=== PATIENT | female | born 1925 | race Caucasian/White ===

== ENCOUNTER 2016-08-29 13:46 | Emergency (ER) | payer MEDICARE ==
[~2016-08-29] VITALS: Ht 157.5 cm; Wt 80.0 kg
[~2016-08-29 13:46] MED LIST: GABA100C4 PO; ULTR50TA PO
[2016-08-29 13:58] VITALS: BP 123/75; PULSE 62; RESP 16; TEMP 99.3; O2SAT 96
[2016-08-29] MEDS ORDERED: GABA100C4 PO (14:15)
--- NOTE | 2016-08-29 14:38 | PD ---
HPI Chief Complaint: Back/ Neck Pain or Injury Time Seen by Provider: 14:35 Travel History International Travel<30 days: No Contact w/Intl Traveler<30days: No Traveled to known affect area: No History of Present Illness HPI 89-year-old female presents to the emergency department for evaluation of right upper back pain. Patient states she has a history of chronic back pain, but it has worsened over the last 3 days. She states it comes and goes. It is worse with movement. She states that it was better the last night with a heating pad. She denies a traumatic injury. She does report a history of chronic back pain and states that she also has a history of calcifications on her ribs. Patient denies any chest pain or shortness of breath. No abdominal pain. No vomiting. She is ambulatory. Patient states she has taken Tylenol for pain without relief. Patient also has a history of hypertension. She states she has had imaging done of the spine in the chest. PFSH Past Medical History Arthritis: Yes Blood Disorders: No Anxiety: No Depression: Yes Cancer: Yes (BREAST CA) Cardiovascular Problems: Yes Chemotherapy: No Diabetes: No Diminished Hearing: No Endocrine: No Gastrointestinal Disorders: Yes (HEARTBURN) GERD: Yes Genitourinary: Yes (bladder sling ) Hypertension: Yes Immune Disorder: No Medical other: Yes (CHRONIC BACK PAIN) Musculoskeletal: Yes (RIGHT LEG NEUROPATHY, RIGHT FOOT DROP) Neurologic: No Psychiatric: Yes Reproductive: No Respiratory: No Immunizations Current: Yes Radiation Therapy: Yes (LEFT BREAST CANCER WITH LUMPECTOMY) Tetanus Vaccination: < 5 Years Influenza Vaccination: Yes ?: Not Menopausal: Yes Past Surgical History Abdominal Surgery: Yes (APPENDECTOMY, CHOLECYSTECTOMY) Appendectomy: Yes Cholecystectomy: Yes Eye Surgery: Yes (CATARACTS) Genitourinary Surgery: Yes (BLADDER "UPLIFT") Gynecologic Surgery: Yes Hysterectomy: Yes Other Surgery: Yes (CARPAL TUNNEL, BUNIONS) Social History Alcohol Use: Yes (RARE) Tobacco Use: No Substance Use: No Allergies-Medications (Allergen,Severity, Reaction): Coded Allergies: Demerol (Verified Allergy, Severe, HALLUCINATIONS, 08/29/16) Latex (Verified Allergy, Severe, RASH, 08/29/16) PATIENT STATES THAT SHE ONLY GETS A RASH FROM LATEX BANDAGES AND HAS NO ISSUES WITH LATEX GLOVES, ETC. Reported Meds & Prescriptions Reported Meds & Active Scripts Active Reported Gabapentin 100 Mg Cap 2 Cap PO TID Review of Systems Except as stated in HPI: all other systems reviewed are Neg Physical Exam Narrative GENERAL: Well-developed well-nourished elderly female patient, afebrile. SKIN: Warm and dry. HEAD: Normocephalic. Atraumatic. EYES: No scleral icterus. No injection or drainage. NECK: Supple, trachea midline. No JVD or lymphadenopathy. CARDIOVASCULAR: Regular rate and rhythm without murmurs, gallops, or rubs. RESPIRATORY: Breath sounds equal bilaterally. No accessory muscle use. Lungs sounds are clear to auscultation. GASTROINTESTINAL: Abdomen soft, non-tender, nondistended. MUSCULOSKELETAL: No cyanosis, or edema. Bilateral upper and lower she was strength 5/5. BACK: Nontender without obvious deformity. No CVA tenderness. No midline spinal tenderness. She does have tenderness over the right posterior ribs. This is reproducible with palpation and movement. Data Data Last Documented VS Vital Signs Date Time Temp Pulse Resp B/P Pulse Ox O2 Delivery O2 Flow Rate FiO2 08/29/16 13:58 99.3 62 16 123/75 96 Orders Chest, Single Ap (08/29/16 ) Acetamin-Hydrocod 325-5 Mg ([place] 5-325 (08/29/16 14:45) Spine, Lumbar - Ltd (Ap & Lat) (08/29/16 ) Spine, Thoracic-Ap/Lat/Sw(3vw) (08/29/16 ) MDM Medical Decision Making Medical Screen Exam Complete: Yes Emergency Medical Condition: Yes Medical Record Reviewed: Yes Interpretation(s) Last Impressions Thoracic Spine X-Ray 08/29/16 0000 Signed Impressions: Service Date/Time: Monday, August 29, 2016 14:44 - CONCLUSION: Osteopenia or osteoporosis with mild degenerative hypertropic spurring. Marciano Crockett MD Lumbar Spine X-Ray 08/29/16 0000 Signed Impressions: Service Date/Time: Monday, August 29, 2016 14:40 - CONCLUSION: No acute abnormality Marciano Crockett MD chest x-ray shows no acute disease Differential Diagnosis Acute exacerbation of chronic back pain versus fracture versus muscle strain versus muscle spasm Narrative Course 89-year-old female presents to the emergency department for evaluation of acute exacerbation of her chronic back pain. She does state that her back pain has been worse over the past 3 days. I discussed the case my attending physician, Dr. Suggs. Reviewed old imaging. Symptoms are not consistent with aortic aneurysm. She states that she has had similar pain in the past. X-ray of the chest, thoracic, lumbar spine ordered and pending. X-ray of the chest shows no acute disease. X-ray of the thoracic spine shows degenerative changes. X-ray of the lumbar spine shows no acute abnormality. Patient does report this is chronic pain. She'll be discharged a short-term prescription for Lortab and instructed to follow-up with her primary care physician. She is agreeable to this plan. Diagnosis Primary Impression: Acute exacerbation of chronic low back pain Referrals: Primary Care Physician call for appointment Patient Instructions: Chronic Back Pain (ED), General Instructions Additional Instructions: Take Lortab as directed as needed for pain. Caution this can make you drowsy so do not drive after taking. Rotate ice/heat. Follow-up with your primary care physician. Return to the emergency department for any acute worsening of symptoms. Med/Other Pt SpecificInfo: Prescription(s) given Scripts Hydrocodone-Acetaminophen (Lortab)5-325 Mg Tab1 Tab PO Q6H PRN (PAIN) #12 TAB Ref 0 Prov:Butch Tim MD 08/29/16 Disposition: 01 DISCHARGE HOME Condition: Stable NoelTamiko JORGE ALBERTO Aug 29, 2016 14:38
[2016-08-29] MEDS ORDERED: ACETAMINOPHEN/HYDROcodone 325 MG/5 MG TAB PO ONE (14:45)
--- NOTE | 2016-08-29 16:32 | RADHPO ---
EXAM DATE/TIME: 08/29/2016 14:44 [facility] COMPARISON: No previous studies available for comparison. INDICATIONS : Back pain with no known injury MEDICAL HISTORY : None. SURGICAL HISTORY : None. ENCOUNTER: Initial ACUITY: 3 days PAIN SCORE: 6/10 LOCATION: middle Upper back FINDINGS: Bony structures are osteopenic or osteoporotic and appear intact and normally aligned without fractur e, compression, or subluxation and no destructive change. There is interspersed anterior marginal spu rring left side lower thoracic spine. CONCLUSION: Osteopenia or osteoporosis with mild degenerative hypertropic spurring. Marciano Crockett MD on August 29, 2016 at 16:29 Board Certified Radiologist. This report was verified electronically.
--- NOTE | 2016-08-29 16:33 | RADHPO ---
EXAM DATE/TIME: 08/29/2016 14:40 [facility] COMPARISON: No previous studies available for comparison. INDICATIONS : Low back pain with no known injury MEDICAL HISTORY : None. SURGICAL HISTORY : Bilateral hip replacement ENCOUNTER: Initial ACUITY: 3 days PAIN SCORE: 5/10 LOCATION: middle lumbar spine FINDINGS: Bony structures are osteopenic or osteoporotic intact with normal alignment and no evidence fracture, compression, subluxation or destructive change. There is narrowing of the lowest intervertebral disc space which may represent S1-2 and facet arthritic changes in the lower lumbar spine. CONCLUSION: No acute abnormality Marciano Crockett MD on August 29, 2016 at 16:30 Board Certified Radiologist. This report was verified electronically.
--- NOTE | 2016-08-29 17:21 | RADHPO ---
EXAM DATE/TIME: 08/29/2016 14:32 [facility] COMPARISON: No previous studies available for comparison. INDICATIONS : Cough MEDICAL HISTORY : Hypertension. Carcinoma, breast. SURGICAL HISTORY : Left lumpectomy ENCOUNTER: Initial ACUITY: 3 days PAIN SCORE: 5/10 LOCATION: Bilateral chest FINDINGS: A single view of the chest demonstrates the lungs to be symmetrically aerated without evidence of mas s, infiltrate or effusion. The cardiomediastinal contours are unremarkable. Osseous structures are intact. CONCLUSION: No acute disease. Raghav Angel MD on August 29, 2016 at 17:19 Board Certified Radiologist. This report was verified electronically.
[2016-08-29] MEDS ORDERED: HYDR-3533 PO (17:22)
== END 2016-08-29 17:44 | disposition home or self-care (01) ==
LOC: PHEFT 13:46
DX: M54.5 Low back pain (principal); F32.9 Major depressive disorder, single episode, unspecified; I10 Essential (primary) hypertension
CPT/HCPCS: 71010; 72072; 72100; 99283